=== PATIENT | male | born 1995 | race African-American/Black ===

== ENCOUNTER 2025-06-20 11:44 | Inpatient (IN) | payer SELFPAY ==
--- OUTSIDE RECORDS SUMMARY | 2025-06-20 11:47 | XMS REPORT | Continuity of Care Document ---
Author Name Unknown Address [address] [facility] [address] [place] [address] Organization [facility] [place] Address [address] [facility]. [address] [place] [address] Care Team Providers Care Project Coach Name Role Phone Pcp, Pcp Primary Care Physician Unavailab HERNAN Jiménez Attending Clinician Unavailable ISAIAH LAIRD Attending Clinician Renetta Karie Latham Attending Clinician Unavailable Social History Social Habit Start Date Stop Date Quantity Comments Source Sexual orientation [facility] Gender identity Emiliano allyn [place] [facility] Sex 2025-06-10 16:02:58 2025-06-10 16:02:58 Male (finding) [facility] Smoking Status Start Date Stop Date Source Tobacco smoking consumption unknown [facility] Medications Ordered Medication Name Filled Medication Name Start Date Stop Date Current Medication? Ordering Clinician Indication Dosage Frequency Signature (SIG) Comments Components Source iohexol (OMNIPaque) 350 MG/ML injection 75 mL iohexol (OMNIPaque) 350 MG/ML injection 75 mL 06-10 18:42: 56 06-10 18:44 :00 No 75mL 75 mL, Intravenou s, Once in imaging, Starting on 06/10/25 at 1842, For 1 dose Clint Hein sodium chloride (NS) 0.9 % flush 10 mL sodium chloride (NS) 0.9 % flush 10 mL 06-10 16:20: 27 Yes 10mL [Order 1 Start] Name: Insert peripheral IV Signed Summary: Once, On 06/10/25 at 1621, For 1 occurrence [Order 1 End] [Order 2 Start] Name: Saline lock IV Signed Summary: Once, On [facility] 06/10/25 at 1621, For 1 occurrence [Order 2 End] [Order 3 Start] Name: sodium chloride (NS) 0.9 % flush 10 mL Signed Summary: 10 mL, Intravenou s, As needed, line care, Starting on [facility] 06/10/25 at 1620 [Order 3 End] Clint Sanabria [facility] doxycycline (Vibramycin ) 100 MG capsule doxycycline (Vibramycin ) 100 MG capsule 06-10 00:00: 00 06-20 23:59 :00 No 100mg Q.5D Take 1 capsule by mouth in the morning and 1 capsule in the evening. Do all this for 10 days. Take with at least 8 ounces (large glass) of water, do not lie down for 30 minutes after. Clint Sanabria [facility] benzonatate (Tessalon) 100 MG capsule benzonatate (Tessalon) 100 MG capsule 06-10 00:00: 00 06-17 23:59 :00 No 100mg Q8H Take 1 capsule by mouth in the morning and 1 capsule at noon and 1 capsule before bedtime. Do all this for 7 days. Do not crush or chew. Clint Sanabria [facility] Vital Signs Vital Name Observation Time Observation Value Comments S rehanajudi Systolic blood pressure 2025-06-10 21:01:00 153 mm[Hg] [facility] Diastolic blood pressure 2025-06-10 21:01:00 89 mm[Hg] [facility] Heart rate 2025-06-10 21:01:00 87 /min Terrance moss [facility] Body temperature 2025-06-10 21:01:00 37.56 Radha [facility] Respiratory rate 2025-06-10 21:01:00 18 /min [facility] Oxygen saturation in Arterial blood by Pulse oximetry 2025-06-10 21:01:00 100 /min [facility] Body height 2025-06-10 16:08:00 185.9 cm Emilianojada gruber [facility] Body weight 2025-06-10 16:08:00 146 kg [facility] BMI 2025-06-10 16:08:00 42.23 kg/m2 Emiliano gruber [facility] Procedures Procedure Date / Time Performed Performing Clinician Source CT ANGIOGRAM CHEST PULMONARY EMBOLISM 2025-06-10 18:52:45 Margaret Braxton [facility] COMPREHENSIVE METABOLIC PANEL 2025-06-10 16:44:00 Margaret Braxton [facility] B-TYPE NATRIURETIC PEPTIDE 2025-06-10 16:44:00 Margaret Braxton [facility] Melvina TYPE AND SCREEN 2025-06-10 16:44:00 Neva Braxton [facility] COMPLETE BLOOD COUNT W/DIFF AND PLATELET 2025-06-10 16:44:00 Margaret Braxton [facility] D-DIMER, QUANTITATIVE 2025-06-10 16:44:00 Margaret Gore [facility] PROTIME-INR 2025-06-10 16:44:00 Neva Braxton [facility] Melvina PTT 2025-06-10 16:44:00 Neva Braxton [facility] TROPONIN I HIGH SENSITIVITY (SINGLE ORDER) 2025-06-10 16:44:00 Margaret Braxton [facility] COMPLETE BLOOD COUNT 2025-06-10 16:44:00 Margaret Braxton [facility] AUTOMATED DIFFERENTIAL 2025-06-10 16:44:00 Margaret Bernal [facility] XR CHEST 1 VIEW 2025-06-10 16:36:00 Neva Braxton [facility] ECG 12-LEAD 2025-06-10 16:21:27 Neva Braxton [facility] ECG 12 lead (arrhythmia) [facility] Plan of Care Planned Activity Planned Date Details Comments Source Encounters Start Date/Time End Date/Time Encounter Type Admission Type Attending Clinicians Care Facility Care Department Encounter ID Source 2023-04-16 10:23:48 Outpatient [facility] [id number] [facility] 2025-06-28 08:00:00 2025-06-28 08:00:00 Outpatient HERNAN SHERMAN [id number] Dee Kaplan 2025-06-10 16:14:00 2025-06-10 21:02:00 Emergency E ISAIAH ALIRD [facility] General Medicine [id number] Clint Sanabria [facility] 2023-04-24 15:43:00 2023-04-24 15:43:00 Outpatient Karie Angela [facility] [id number] [facility] 2023-04-17 13:30:00 2023-04-17 13:30:00 [facility] [id number] Results Test Description Test Time Test Comments Results Resul t Comments Source CT angiogram chest pulmonary embolism 2025-05-16 7 20:38:43 1. ? No pulmonary thromboembolism. 2. ? Right paramediastinal consolidation extending into the right upper lobe and right apex, suspicious for pneumonia. Continued close clinical and imaging follow-up is recommended to follow resolution. ELECTRONICALLY SIGNED BY WAQAR CARRASQUILLO MD ON 06/10/2025 AT 20:38.PROCEDURE INFORMATION: Exam: CTA Chest With Contrast Exam date and time: 06/10/2025 6:43 PM Age: 29 years old Clinical indication: Hemoptysis TECHNIQUE: Imaging protocol: Computed tomographic angiography of the chest with contrast. Exam focused on the arteries. 3D rendering (Not supervised by radiologist): MIP and/or 3D reconstructed images were created by the technologist. Radiation optimization: All CT scans at this facility use at least one of these dose optimization techniques: automated exposure control; mA and/or kV adjustment per patient size (includes targeted exams where dose is matched to clinical indication); or iterative reconstruction. Contrast material: IOHEXOL 350 MG/ML IV SOLN; Contrast volume: 75 ml; Contrast route: IV; ? COMPARISON: DX XR CHEST 1 VIEW 06/10/2025 4:25 PM FINDINGS: Pulmonary arteries: Normal. No pulmonary emboli. Aorta: Unremarkable. No aortic aneurysm. No aortic dissection. Lungs: Unremarkable. No consolidation. No masses. Pleural spaces: Unremarkable. No pneumothorax. No pleural effusion. Heart: Unremarkable. No cardiomegaly. No pericardial effusion. Mediastinal space: Right paramediastinal consolidation is seen extending into the right upper lobe and right apex with surrounding ground-glass opacity. Lymph nodes: Unremarkable. No enlarged lymph nodes. Liver: Hepatic steatosis is seen. Bones/joints: Unremarkable. No acute fracture. Soft tissues: Unremarkable. Waqar Carrasquillo MD - 06/10/2025 PROCEDURE INFORMATION: Exam: CTA Chest With Contrast Exam date and time: 06/10/2025 6:43 PM Age: 29 years old Clinical indication: Hemoptysis TECHNIQUE: Imaging protocol: Computed tomographic angiography of the chest with contrast. Exam focused on the arteries. 3D rendering (Not supervised by radiologist): MIP and/or 3D reconstructed images were created by the technologist. Radiation optimization: All CT scans at this facility use at least one of these dose optimization techniques: automated exposure control; mA and/or kV adjustment per patient size (includes targeted exams where dose is matched to clinical indication); or iterative reconstruction. Contrast material: IOHEXOL 350 MG/ML IV SOLN; Contrast volume: 75 ml; Contrast route: IV; COMPARISON: DX XR CHEST 1 VIEW 06/10/2025 4:25 PM FINDINGS: Pulmonary arteries: Normal. No pulmonary emboli. Aorta: Unremarkable. No aortic aneurysm. No aortic dissection. Lungs: Unremarkable. No consolidation. No masses. Pleural spaces: Unremarkable. No pneumothorax. No pleural effusion. Heart: Unremarkable. No cardiomegaly. No pericardial effusion. Mediastinal space: Right paramediastinal consolidation is seen extending into the right upper lobe and right apex with surrounding ground-glass opacity. Lymph nodes: Unremarkable. No enlarged lymph nodes. Liver: Hepatic steatosis is seen. Bones/joints: Unremarkable. No acute fracture. Soft tissues: Unremarkable. IMPRESSION:1. No pulmonary thromboembolism. 2. Right paramediastinal consolidation extending into the right upper lobe and right apex, suspicious for pneumonia. Continued close clinical and imaging follow-up is recommended to follow resolution. ELECTRONICALLY SIGNED BY WAQAR CARRASQUILLO MD ON 06/10/2025 AT 20:38. [facility] XR chest 1 view 2025-05-16 7 18:25:55 No acute cardiopulmonary findings. ELECTRONICALLY SIGNED BY TROY CABRERA MD ON 06/10/2025 AT 18:25.PROCEDURE INFORMATION: Exam: XR Chest Exam date and time: 06/10/2025 4:25 PM Age: 29 years old Clinical indication: Hemoptysis TECHNIQUE: Imaging protocol: Radiologic exam of the chest. Views: 1 view. COMPARISON: No relevant prior studies available. FINDINGS: Lungs: Normal lung volumes. No consolidation. Pleural spaces: Unremarkable. No pleural effusion. No pneumothorax. Heart/Mediastinum: Heart size is within normal limits. Vasculature is unremarkable. Bones/joints: Unremarkable. Troy Cabrera MD - 06/10/2025 PROCEDURE INFORMATION: Exam: XR Chest Exam date and time: 06/10/2025 4:25 PM Age: 29 years old Clinical indication: Hemoptysis TECHNIQUE: Imaging protocol: Radiologic exam of the chest. Views: 1 view. COMPARISON: No relevant prior studies available. FINDINGS: Lungs: Normal lung volumes. No consolidation. Pleural spaces: Unremarkable. No pleural effusion. No pneumothorax. Heart/Mediastinum: Heart size is within normal limits. Vasculature is unremarkable. Bones/joints: Unremarkable. IMPRESSION:No acute cardiopulmonary findings. ELECTRONICALLY SIGNED BY TROY CABRERA MD ON 06/10/2025 AT 18:25. [facility] Notes Pending Results Date/Time Note Provider Source 2025-06-10 21:02:28 [facility] Health Maintenance Due Date Last Done Comments Annual Physical 1997 Varicella Vaccines (1 of 2 - 13+ 2-dose series) 2007 DTaP/Tdap/Td Vaccines (1 - Tdap) 2013 Hepatitis B Vaccines (1 of 3 - 19+ 3-dose series) 2013 HPV Vaccines (1 - 3-dose SCD M series) 2021 Influenza Vaccine (#1) 2025 Respiratory Syncytial Virus (RSV) Adult Series (1 - 1-dose 75+ series) 2069 HIB Vaccines Aged Out No longer eligi ble based on patient's age to complete this topic Hepatitis A Vaccines Aged Out No long er eligible based on patient's age to complete this topic IPV Vaccines Aged Out No longer eligi ble based on patient's age to complete this topic Meningococcal Vaccine Aged Out No josiane billie eligible based on patient's age to complete this topic Pneumococcal Vaccine: Pediat rics (0 to 5 Years) and At-Risk Patients (6 to 64 Years) Aged Out No longer eligible b ased on patient's age to complete this topic Rotavirus Vaccines Aged Out No longer eligible based on patient's age to complete this topic [id number] 21:02:28 Diagnosis Pneumonia of right lung due to infectious organism, unspecified part of lung - [id number] 21:02:28 Maura [place]
--- NOTE | 2025-06-20 12:43 | RAD REPORT ---
EXAMINATION: ONE VIEW CHEST XR CLINICAL INDICATION: CHEST PAIN TECHNIQUE: Frontal chest projection is submitted. Examination is limited by patient positioning and t echnique. COMPARISON: No prior exam. FINDINGS: Soft tissue lesion along the right may represent mass. CT is recommended. The lungs are otherwise madi ssly clear. The heart is normal in size. No displaced fractures identified.
[2025-06-20 13:08] LABS: Absolute Lymphocytes (CBC) 2.0 K/uL (0.7-4.9); Hematocrit 47.5 % (39.6-49.0); Hemoglobin 15.5 g/dL (13.6-17.9); MCH 28.1 pg (27.0-35.0); MCHC 32.5 g/dL (32.0-36.0); MCV 86.2 fL (80-100); MPV 7.2 fL (7.6-11.3); Nucleated RBC Absolute Count 0.0 (0-0); Nucleated Red Blood Cells % 0.1 % (0-0); RBC Red Blood Cell Count 5.51 M/uL (4.33-5.43); White Blood Count 12.10 thou/uL (4.3-10.9)
[2025-06-20 13:14] LABS: PT Prothrombin Time 16.7 SECONDS (10-13.0); Protime INR 1.5
[2025-06-20 13:27] LABS: ALT/SGPT 59.0 U/L (16-61); AST/SGOT 23.0 U/L (15-37); Albumin 3.5 g/dL (3.4-5.0); Albumin/Globulin Ratio 0.8 (1.1-1.8); Alkaline Phosphatase 81.0 U/L (45-117); Anion Gap 8.6 mEq/L (5.0-15.0); BUN Blood Urea Nitrogen 9.0 mg/dL (7-18); Bilirubin Indirect, Calculated 0.4 mg/dL (0.2-0.8); Globulin 4.5 g/dL (2.3-3.5); Glucose Level 142.0 mg/dL (74-106); Magnesium 2.2 mg/dL (1.6-2.4); NT PRO-BNP 24.0 pg/mL (<125); Potassium 3.6 mEq/L (3.5-5.1); Troponin High Sensitivity 3.2 pg/mL (<58.9)
--- NOTE | 2025-06-20 14:06 | RAD REPORT ---
EXAM: CT Chest For Pe Angio TECHNIQUE: CT angiogram of the chest was performed following intravenous contrast administration, inc luding sagittal and coronal as well as maximum intensity projection reformats. One or more of the following dose reduction techniques were used: Automated exposure control, adjustment of the mA and k V according to patient size, and iterative reconstruction. Unless otherwise specified, incidental findings do not require dedicated imaging follow-up. INDICATION: HS MAIN Cough;Dyspnea;Chest pain Bed Name: [facility] COMPARISON: 06/20/2025 chest radiograph. FINDINGS: LINES/TUBES: None. PULMONARY ARTERIES: Main pulmonary arteries are normal in caliber. No filling defects within the pul monary arteries to suggest pulmonary embolus. LUNGS AND AIRWAYS: Medial right apex consolidation extending towards the lung hilum with adjacent mil d peripheral groundglass opacities. Central airways appear patent. PLEURA: No effusion or pneumothorax. HEART AND MEDIASTINUM: The visualized thyroid gland is normal. No mediastinal, hilar, or axillary lym phadenopathy. Heart is unremarkable. No pericardial effusion. SOFT TISSUES AND BONES: No acute osseous abnormality. No significant soft tissue finding. UPPER ABDOMEN: Diffuse hepatic parenchymal hypoattenuation suggesting steatosis. IMPRESSION: No evidence of acute central pulmonary emboli. Medial right apex consolidation, concerning for pneumonia. A follow-up CT chest is recommended follow ing resolution of any acute symptoms, to ensure absence of an underlying suspicious mass.
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
[2025-06-20] MEDS ORDERED: NA CHLORIDE 0.9% 250 ML ONE (15:20)
[2025-06-20] MEDS ORDERED: CEFTRIAXONE 1000 MG/VIAL ONE (15:20)
[2025-06-20] MEDS ORDERED: AZITHROMYCIN 500 MG INJ IVPB ONE (15:20)
[2025-06-20] MEDS ORDERED: NA CHLORIDE 0.9% 50 ML ONE (15:21)
[2025-06-20] MEDS ORDERED: ONDANSETRON 4 MG/2 ML VIAL IV PRN (16:57)
[2025-06-20] MEDS ORDERED: ALBUTEROL 2.5 MG/3 ML NEB SOL NEB PRN (16:57)
[2025-06-20] MEDS ORDERED: ACETAMINOPHEN 325 MG TABLET PO PRN (16:57)
--- NOTE | 2025-06-20 16:57 | P.HP ---
Certification for Inpatient Patient admitted to: Inpatient With expected LOS: >2 Midnights Practitioner: I am a practitioner with admitting privileges, knowledge of patient current condition, hospital course, and medical plan of care. Services: Services provided to patient in accordance with Admission requirements found in Title 42 Section 412.3 of the Code of Federal Regulations Patient History Date of Service: 06/20/25 Reason for admission: PNA History of Present Illness: 29 yrs old Male with past medical history of hypertension, hyperlipidemia who was brought to ER with chest pain and coughing up blood. Patient denies any fever or chills. Was diagnosed with pneumonia on 06/10/2015 and was treated with doxycycline. But his symptoms progressively getting worse and was brought to ER. Denies any shortness of breath. Associated with cough. Mucoid expectoration. No sick contacts. Patient was assessed in the ER and had a CT of the chest and was Cance admitted for further management of pneumonia Allergies No Known Allergies Allergy (Unverified 06/20/25 17:04) - Past Medical/Surgical History Past Medical History: Reviewed- Non-Contributory -: HTN Past Surgical History: Reviewed- Non-Contributory - Social History Smoking Status: Never smoker Review of Systems 10-point ROS is otherwise unremarkable Physical Examination - Vital Signs Temperature: 99.4 F Blood Pressure: 144/94 Pulse: 92 Respirations: 18 Pulse Ox (%): 94 - Physical Exam General: Alert, In no apparent distress, Oriented x3 HEENT: Atraumatic, Normocephalic Neck: Supple Respiratory: Clear to auscultation bilaterally, Normal air movement, Crackles/rales Cardiovascular: No edema, Regular rate/rhythm, Normal S1 S2 Capillary refill: <2 Seconds Gastrointestinal: Soft and benign, W/out hepatosplenomegaly Musculoskeletal: No clubbing Integumentary: No rashes Neurological: Other (Alert awake nonfocal) Lymphatics: No axilla or inguinal lymphadenopathy - Studies Laboratory Data (last 24 hrs) 06/20/25 06/20/25 06/20/25 15:00 12:36 12:36 WBC 12.10 H Hgb 15.5 Hct 47.5 Plt Count 359 PT 16.7 H INR 1.50 APTT 32.6 Sodium Potassium BUN Creatinine Glucose Magnesium Total Bilirubin AST ALT Alkaline Phosphatase 06/20/25 12:36 WBC Hgb Hct Plt Count PT INR APTT Sodium 138 Potassium 3.6 BUN 9 Creatinine 0.99 Glucose 142 H Magnesium 2.2 Total Bilirubin 0.6 AST 23 ALT 59 Alkaline Phosphatase 81 Assessment and Plan - Plan Pneumonia Failure of outpatient management Started on antibiotics Will obtain cultures Change antibiotic as per sensitivity CT findings noted Hypertension Monitor closely on telemetry Hydralazine as needed GI/DVT prophylaxis Advanced directive full code Discharge Plan: Home Plan to discharge in: 48 Hours - Advance Directives Does patient have a Living Will: No Does patient have a Durable POA for Healthcare: No - Code Status/Comfort Care Code Status: Full Code Time Spent Managing Pts Care (In Minutes): 48
[2025-06-20 21:15] VITALS: O2SAT 97
[2025-06-20 22:18] VITALS: BMI 42.0
[2025-06-21 06:07] LABS: Absolute Lymphocytes (CBC) 2.6 K/uL (0.7-4.9); Hematocrit 42.6 % (39.6-49.0); Hemoglobin 14.0 g/dL (13.6-17.9); MCH 28.3 pg (27.0-35.0); MCHC 33.0 g/dL (32.0-36.0); MCV 85.9 fL (80-100); MPV 7.3 fL (7.6-11.3); Nucleated RBC Absolute Count 0.0 (0-0); Nucleated Red Blood Cells % 0.0 % (0-0); RBC Red Blood Cell Count 4.96 M/uL (4.33-5.43); White Blood Count 13.60 thou/uL (4.3-10.9)
[2025-06-21 06:23] LABS: ALT/SGPT 52.0 U/L (16-61); AST/SGOT 23.0 U/L (15-37); Albumin 3.0 g/dL (3.4-5.0); Albumin/Globulin Ratio 0.8 (1.1-1.8); Alkaline Phosphatase 67.0 U/L (45-117); Anion Gap 9.8 mEq/L (5.0-15.0); BUN Blood Urea Nitrogen 10.0 mg/dL (7-18); Globulin 4.0 g/dL (2.3-3.5); Glucose Level 127.0 mg/dL (74-106); Potassium 3.8 mEq/L (3.5-5.1)
[2025-06-21] MEDS: AZITHROMYCIN IV 500 MG in NA CHLORIDE 0.9% 250 ML IVPB SCH (10:13)
[2025-06-21] MEDS: CEFTRIAXONE 1,000 MG in NA CHLORIDE 0.9% 50 ML IVPB SCH (10:17)
--- NOTE | 2025-06-21 10:26 | P.PN ---
Date of Service: 06/21/25 Subjective: chest discomfort improving reports some specks of blood when coughing/spiting. denies any worsening problems afebrile Physical Exam: GEN: Alert, oriented, NAD CV: Regular rate and rhythm, no edema Pulm: Nonlabored respirations on room air, +cough Neuro: Normal speech, normal affect Problem List: Pneumonia, failed outpatient therapy Hemoptysis Hypertension Hyperlipidemia on admission, presents with chest discomfort associated with SOB, cough, hemoptysis Previously diagnosed with Pneumonia on 06/10 at [facility] and was given script for Doxycycline however symptoms continued to worsen on abx CTA chest (06/21): no PE. Medial right apex consolidation concerning for pneumonia. Continue IV rocephin/Azithromycin (06/21-) Blood cultures pending pain control, nebs on room air Pulm consult confirm home meds, restart as appropriate VTE: SCD Code: Full Dispo: Home Pending improvement Time Spent Managing Pts Care (In Minutes): 55
[2025-06-22 06:43] LABS: Absolute Lymphocytes (CBC) 2.1 K/uL (0.7-4.9); Hematocrit 45.8 % (39.6-49.0); Hemoglobin 15.1 g/dL (13.6-17.9); MCH 28.2 pg (27.0-35.0); MCHC 32.9 g/dL (32.0-36.0); MCV 85.7 fL (80-100); MPV 7.3 fL (7.6-11.3); Nucleated RBC Absolute Count 0.0 (0-0); Nucleated Red Blood Cells % 0.0 % (0-0); RBC Red Blood Cell Count 5.35 M/uL (4.33-5.43); White Blood Count 12.60 thou/uL (4.3-10.9)
[2025-06-22 07:20] LABS: Anion Gap 8.1 mEq/L (5.0-15.0); BUN Blood Urea Nitrogen 10.0 mg/dL (7-18); Glucose Level 118.0 mg/dL (74-106); Magnesium 2.1 mg/dL (1.6-2.4); Potassium 4.1 mEq/L (3.5-5.1)
[2025-06-22 08:56] VITALS: BP 105/56; TEMP 97.9
[2025-06-22] MEDS ORDERED: OXYMETAZOLINE HCL 0.05% 30ML NAS PRN (09:07)
--- NOTE | 2025-06-22 09:37 | P.CNS ---
Date of Consult: 06/21/25 Reason for Consult: RUL pneumonia Chief Complaint: Cough and hemoptysis History of Present Illness: Age 29 prev healthy Seen in [place] Dx with pneumonia DC on Doxy. Worsened Ended up here in ER with Cough , hemoptysis and chest pain. Left sided Pleuritic. RUL MAss / pneumonia Allergies No Known Allergies Allergy (Unverified 06/20/25 17:04) Home Medications: levoFLOXacin [Levaquin] 750 mg PO DAILY #7 tab 06/22/25 - Past Medical/Surgical History Diabetic: No -: HTN - Social History Alcohol use: Yes CD- Drugs: No Caffeine use: No Place of Residence: Home Review of Systems 10-point ROS is otherwise unremarkable Physical Examination Temp Pulse Resp BP Pulse Ox 97.9 F 77 17 105/56 L 95 06/22/25 08:00 06/22/25 08:00 06/22/25 08:00 06/22/25 08:00 06/22/25 08:00 General: Alert, Oriented x3 HEENT: Atraumatic Neck: Supple Respiratory: Clear to auscultation bilaterally Cardiovascular: No edema, Regular rate/rhythm, Normal S1 S2 Gastrointestinal: Normal bowel sounds, Soft and benign - Problems (1) Pneumonia Current Visit: Yes Status: Acute Plan: Age 29 AW cough, hemoptysis and RUL mass/ pneumonia. Doesnot smoke. No risk factors for Cancer. WBC elevated .Prev failed Doxy Tx. Change to PO levaquin 720 for 7 days and f/u with me 7 days. Bronch if not better
--- NOTE | 2025-06-22 09:55 | P.DS ---
Admission Date: 06/20/25 Discharge Date: 06/22/25 Disposition: ROUTINE DISCHARGE Discharge Condition: GOOD Reason for Admission: Cough and hemoptysis Consultations: Pulmonology - Dr. Ruiz Brief History of Present Illness: 29yo M, PMH: hypertension, hyperlipidemia Patient who was brought to ER with chest pain and coughing up blood. Patient denies any fever or chills. Was diagnosed with pneumonia on 06/10/2015 and was treated with doxycycline. But his symptoms progressively getting worse and was brought to ER. Denies any shortness of breath. Associated with cough. Mucoid expectoration. No sick contacts. Patient was assessed in the ER and had a CT of the chest and was Cance admitted for further management of pneumonia Hospital Course: Problem List: Pneumonia, failed outpatient therapy Hemoptysis Hypertension Hyperlipidemia Physician discharge instructions: Patient presented with chest discomfort associated with SOB, cough, hemoptysis secondary to right-sided pneumonia. Patient reports he was just recently seen at [facility] and had been diagnosed with Pneumonia ~Jun 10. He reports being given a prescription for doxycycline however symptoms continued to worsen despite antibiotics so he came here. CTA chest on admission was negative for PE but showed medial right apex consolidation concerning for pneumonia. Patient received IV Rocephin/Azithromycin while hospitalized. He remained afebrile, mild leukocytosis of 12k, procalcitonin was negative. Remained 95-100% SpO2 on room air. Hemoglobin was stable. Dr. Ruiz, film reader, was consulted, advised patient is stable for discharge home. He recommended discharge on 1 week of levaquin and follow up in the office in 1 week A sputum sample was obtained and sent to lab for stain/culture which will be pending for next few days. Follow up with Dr. Ruiz Suspect some of his hemoptysis may be coming from nasopharynx / posterior nasal bleed. There are multiple times when he is tasting blood / has blood tinged sputum without any cough/deep cough. Anterior Nasal mucosa appeared irritated/inflamed, but no obvious bleed anteriorly. Disscussed trial of afrin 1-2 sprays in each nostril twice a day for next 2-3 days to see if this helps with the blood tinged sputum. Medications: Levaquin 750mg daily x 7 days Follow up: PCP 3-5 days Pulmonology in 1 week Please call to schedule / confirm appointments return to work [employer] 10/13 with no restrictions Physical Exam: GEN: Alert, oriented, NAD CV: Regular rate and rhythm, no edema Pulm: Nonlabored respirations on room air Neuro: Normal speech, normal affect Vital Signs/Physical Exam: Temp Pulse Resp BP Pulse Ox 97.9 F 77 17 105/56 L 95 06/22/25 08:00 06/22/25 08:00 06/22/25 08:00 06/22/25 08:00 06/22/25 08:00 Laboratory Data at Discharge: WBC 12.60 thou/uL (4.3-10.9) H 06/22/25 06:15 Hgb 15.1 g/dL (13.6-17.9) 06/22/25 06:15 Hct 45.8 % (39.6-49.0) 06/22/25 06:15 Plt Count 333 thou/uL (152-406) 06/22/25 06:15 PT 16.7 SECONDS (10-13.0) H 06/20/25 12:36 INR 1.50 06/20/25 12:36 APTT 32.6 SECONDS (27.2-37.4) 06/20/25 15:00 Sodium 138 mEq/L (136-145) 06/22/25 06:15 Potassium 4.1 mEq/L (3.5-5.1) 06/22/25 06:15 BUN 10 mg/dL (7-18) 06/22/25 06:15 Creatinine 0.98 mg/dL (0.70-1.30) 06/22/25 06:15 Glucose 118 mg/dL (74-106) H 06/22/25 06:15 Magnesium 2.1 mg/dL (1.6-2.4) 06/22/25 06:15 Total Bilirubin 0.3 mg/dL (0.2-1.0) 06/21/25 05:38 AST 23 U/L (15-37) 06/21/25 05:38 ALT 52 U/L (16-61) 06/21/25 05:38 Alkaline Phosphatase 67 U/L (45-117) 06/21/25 05:38 Home Medications: levoFLOXacin [Levaquin] 750 mg PO DAILY #7 tab 10/09/25 New Medications: levoFLOXacin [Levaquin] 750 mg PO DAILY #7 tab Physician Discharge Instructions: Physician discharge instructions: Patient presented with chest discomfort associated with SOB, cough, hemoptysis secondary to right-sided pneumonia. Patient reports he was just recently seen at [facility] and had been diagnosed with Pneumonia ~Jun 10. He reports being given a prescription for doxycycline however symptoms continued to worsen despite antibiotics so he came here. CTA chest on admission was negative for PE but showed medial right apex consolidation concerning for pneumonia. Patient received IV Rocephin/Azithromycin while hospitalized. He remained afebrile, mild leukocytosis of 12k, procalcitonin was negative. Remained 95-100% SpO2 on room air. Hemoglobin was stable. Dr. Ruiz, film reader, was consulted, advised patient is stable for discharge home. He recommended discharge on 1 week of levaquin and follow up in the office in 1 week A sputum sample was obtained and sent to lab for stain/culture which will be pending for next few days. Follow up with Dr. Ruiz Suspect some of his hemoptysis may be coming from nasopharynx / posterior nasal bleed. There are multiple times when he is tasting blood / has blood tinged sputum without any cough/deep cough. Anterior Nasal mucosa appeared irritated/inflamed, but no obvious bleed anteriorly. Disscussed trial of afrin 1-2 sprays in each nostril twice a day for next 2-3 days to see if this helps with the blood tinged sputum. Medications: Levaquin 750mg daily x 7 days Follow up: PCP 3-5 days Pulmonology in 1 week Please call to schedule / confirm appointments return to work Tuesday 06/26 with no restrictions Followup: NONE,NONE [Primary Care Provider] - Time spent managing pt's care (in minutes): 45
--- NOTE | 2025-06-22 12:11 | P.PN ---
Subjective Date of Service: 06/22/25 Chief Complaint: Cough and hemoptysis Subjective: Improving (Patient is improving no change no fever or chills) Review of Systems Unremarkable Physical Examination - Vital Signs Temperature: 97.9 F Blood Pressure: 105/56 Pulse: 77 Respirations: 17 Pulse Ox (%): 95 - Physical Exam General: Alert, Oriented x3 Respiratory: Clear to auscultation bilaterally Cardiovascular: No edema, Regular rate/rhythm, Normal S1 S2 Assessment And Plan - Current Problems (Diagnosis) (1) Pneumonia Status: Acute Plan: H30 admitted with right upper lobe lung mass/pneumonia no prior risk factors for infection no prior history of any medical problems patient does not currently smoke he is active white count is stable sputum cultures are pending agree with discharge on levofloxacin for 7 days follow-up with me next week I have informed the patient if she continues to have hemoptysis and it does not change may need a bronchoscopy stable for discharge
== END 2025-06-22 11:21 | disposition home or self-care (01) | DRG 194 ==
LOC: ER 11:44 → ERHOLD 16:57 → 4TH 17:50
PROVIDERS: ADMIT Family Medicine; ATTEND Hospitalist
DX: J18.9 Pneumonia, unspecified organism (principal); R04.2 Hemoptysis; I10 Essential (primary) hypertension; E78.5 Hyperlipidemia, unspecified; Z87.891 Personal history of nicotine dependence; Z79.899 Other long term (current) drug therapy
CPT/HCPCS: 36415; 71045; 71275; 80048; 80053; 80076; 83605; 83735; 83880; 84145; 84484; 85025; 85610; 85730; 87040; 87070; 87205; 93005; 94760; 96365; 96367; 99285; J0456; J0696; J7050; Q9967